=== PATIENT | female | born 1990 | race Two or more races ===

== ENCOUNTER 2023-12-01 09:41 | Emergency (ER) | payer MEDICAID ==
[~2023-12-01] VITALS: Ht 162.6 cm; Wt 91.4 kg
[2023-12-01 10:58] VITALS: BP 145/82; PULSE 87; RESP 18; TEMP 98.2; O2SAT 99
[2023-12-01] MEDS: ONDANSETRON ODT 4 MG TAB PO ONE (11:15)
[2023-12-01] MEDS: SUMAtriptan SUCCINATE 6 MG/0.5 ML VL SC ONE (11:15)
[2023-12-01] MEDS ORDERED: SUMA50TA2 PO (11:36)
[2023-12-01] MEDS ORDERED: ZOFR4T PO (11:36)
== END 2023-12-01 11:45 | disposition home or self-care (01) ==
LOC: ER 09:41
DX: G43.909 Migraine, unspecified, not intractable, without status migrainosus (principal)
CPT/HCPCS: 96372; 99283; J3030; Q0162